=== PATIENT | female | born 1965 | race Caucasian/White ===

== ENCOUNTER 2017-12-23 13:57 | Inpatient (IN) | payer MEDICARE, BC ==
[2017-12-23 14:34] LABS: ADD MAN DIFF? NO
[2017-12-23 15:05] LABS: ALANINE AMINOTRANSFERASE 17 IU/L (13-69); ALBUMIN 4.7 g/dl (3.3-4.9); ALBUMIN/GLOBULIN RATIO 1.23; ALKALINE PHOSPHATASE 88 IU/L (42-121); ANION GAP 19 (8-16); ASPARTATE AMINO TRANSFERASE 35 IU/L (15-46); BILIRUBIN,INDIRECT 0.2 mg/dl (0-1.1); BILIRUBIN,TOTAL 0.2 mg/dl (0.2-1.3); BLOOD UREA NITROGEN 18 mg/dl (7-20); CALCIUM 9.9 mg/dl (8.4-10.2); CARBON DIOXIDE 20 mmol/L (21-31); CHLORIDE 106 mmol/L (97-110); CREATININE 2.39 mg/dl (0.44-1.00); GLUCOSE 99 mg/dl (70-220); POTASSIUM 4.2 mmol/L (3.5-5.1); SODIUM 141 mmol/L (135-144); TOTAL PROTEIN 8.5 g/dl (6.1-8.1)
[2017-12-23 15:15] LABS: WHITE BLOOD COUNT 10.4 10^3/ul (4.8-10.8)
[2017-12-23 15:15] LABS: BASOPHIL # 0.1 10^3/ul (0.0-0.1); BASOPHILS % 0.5 % (0.0-2.0); EOSINOPHILS # 0.1 10^3/ul (0.0-0.5); EOSINOPHILS % 1.3 % (0.0-7.0); HEMATOCRIT 44.9 % (37.0-47.0); HEMOGLOBIN 14.8 g/dl (12.0-16.0); LYMPHOCYTES # 1.2 10^3/ul (0.8-2.9); LYMPHOCYTES % 11.2 % (15.0-51.0); MEAN CORPUSCULAR HEMOGLOBIN 29.7 pg (29.0-33.0); MEAN PLATELET VOLUME 9.5 fl (7.4-10.4); MONOCYTE # 0.5 10^3/ul (0.3-0.9); MONOCYTES % 4.7 % (0.0-11.0); NEUTROPHIL # 8.5 10^3/ul (1.6-7.5); PLATELET COUNT 247 10^3/UL (140-415); RED BLOOD COUNT 4.99 10^6/ul (4.20-5.40); RED CELL DISTRIBUTION WIDTH 13.4 % (11.5-14.5)
[2017-12-23 15:16] LABS: ACETAMINOPHEN < 10.0 ug/ml (10.0-30.0); ETHANOL < 10.0 mg/dl; SALICYLATE < 1.0 mg/dl (5.0-30.0)
[2017-12-23 15:24] LABS: AMPHETAMINE/METHAMPHETAMINE Negative (NEGATIVE); BARBITURATES Negative (NEGATIVE); BENZODIAZEPINES Positive (NEGATIVE); CANNABINOIDS Negative (NEGATIVE); COCAINE Negative (NEGATIVE); OPIATES Negative (NEGATIVE)
[2017-12-24 13:19] LABS: CREATININE 3.68 mg/dl (0.44-1.00)
[2017-12-24] MEDS: SOD CHLORIDE 0.9% 1,000 ML IV ×2 (13:45→18:55)
[2017-12-24] MEDS ORDERED: ONDANSETRON 4 MG INJ IV ×2 (14:00→16:30)
[2017-12-24] MEDS ORDERED: ACETAMINOPHEN 325 MG TAB PO (14:00)
[2017-12-24] MEDS ORDERED: BISACODYL 10 MG SUPP PR (16:30)
[2017-12-24] MEDS ORDERED: DOCUSATE SODIUM 100 MG CAP PO (16:30)
[2017-12-24] MEDS ORDERED: HYDROCODONE/APAP (5/325) TAB PO (16:30)
[2017-12-24] MEDS ORDERED: MAGNESIUM HYDROXIDE 30ML CUP PO (16:30)
[2017-12-24] MEDS ORDERED: NACL 0.9% 3 ML SYG IV (16:30)
[2017-12-24] MEDS ORDERED: ACETAMINOPHEN 650 MG SUPP PR (16:30)
[2017-12-25] MEDS: SOD CHLORIDE 0.9% 1,000 ML IV ×2 (05:26→09:01)
[2017-12-25 06:32] LABS: ADD MAN DIFF? NO
[2017-12-25] MEDS: PANTOPRAZOLE 40 MG INJ IV (06:34)
[2017-12-25 06:38] LABS: BASOPHILS % 0.5 % (0.0-2.0); EOSINOPHILS # 0.2 10^3/ul (0.0-0.5); EOSINOPHILS % 2.8 % (0.0-7.0); HEMATOCRIT 33.5 % (37.0-47.0); HEMOGLOBIN 11.3 g/dl (12.0-16.0); LYMPHOCYTES # 1.5 10^3/ul (0.8-2.9); LYMPHOCYTES % 23.5 % (15.0-51.0); MEAN CORPUSCULAR HEMOGLOBIN 29.4 pg (29.0-33.0); MEAN CORPUSCULAR HGB CONC 33.7 g/dl (32.0-37.0); MEAN PLATELET VOLUME 9.8 fl (7.4-10.4); MONOCYTE # 0.5 10^3/ul (0.3-0.9); MONOCYTES % 7.2 % (0.0-11.0); NEUTROPHIL # 4.2 10^3/ul (1.6-7.5); NEUTROPHILS % 65.7 % (39.0-77.0); PLATELET COUNT 197 10^3/UL (140-415); RED BLOOD COUNT 3.85 10^6/ul (4.20-5.40); RED CELL DISTRIBUTION WIDTH 13.5 % (11.5-14.5)
[2017-12-25 06:38] LABS: WHITE BLOOD COUNT 6.4 10^3/ul (4.8-10.8)
[2017-12-25 07:05] LABS: CREATINE KINASE 60 IU/L (23-200)
[2017-12-25 07:09] LABS: ALANINE AMINOTRANSFERASE 22 IU/L (13-69); ALBUMIN 3.7 g/dl (3.3-4.9); ALBUMIN/GLOBULIN RATIO 1.27; ALKALINE PHOSPHATASE 61 IU/L (42-121); ANION GAP 12 (8-16); ASPARTATE AMINO TRANSFERASE 24 IU/L (15-46); BILIRUBIN,INDIRECT 0.3 mg/dl (0-1.1); BILIRUBIN,TOTAL 0.3 mg/dl (0.2-1.3); BLOOD UREA NITROGEN 28 mg/dl (7-20); CARBON DIOXIDE 19 mmol/L (21-31); CHLORIDE 115 mmol/L (97-110); CHOL/HDL RATIO 7.1 RATIO; CHOLESTEROL 213 mg/dl (100-200); CREATININE 2.45 mg/dl (0.44-1.00); GLUCOSE 103 mg/dl (70-220); HDL CHOLESTEROL 30 mg/dl (37-92); LDL CHOLESTEROL,CALCULATED 138 mg/dl; PHOSPHORUS 5.5 mg/dl (2.5-4.9); POTASSIUM 4.2 mmol/L (3.5-5.1); SODIUM 142 mmol/L (135-144); TOTAL PROTEIN 6.6 g/dl (6.1-8.1); TRIGLYCERIDES 224 mg/dl (0-149)
[2017-12-25 07:20] LABS: FREE THYROXINE INDEX (Calc) 1.71 ug/ml (0.65-3.89); T3 UPTAKE 32.8 % (23.5-40.5); T4 (THYROXINE) 5.2 ug/dl (5.5-11.0)
[2017-12-25 08:04] LABS: HEMOGLOBIN A1C 5.9 % (0-5.9)
[2017-12-25] MEDS: PAROXETINE 20 MG TAB PO (09:00)
[2017-12-25] MEDS: FERROUS SULFATE (EC) 325 MG TAB PO (09:00)
[2017-12-25] MEDS: SOD CHLORIDE 0.45% 1,000 ML IV (11:52)
[2017-12-25] MEDS: FISH OIL 1,000 MG CAP PO (20:15)
[2017-12-25] MEDS: ATORVASTATIN 40 MG TAB PO (20:16)
[2017-12-26] MEDS ORDERED: SALINE NASAL
[2017-12-26] MEDS ORDERED: ALOE NASAL
[2017-12-26] MEDS: TRIAMCINOLONE ACET 0.025% 15 GM CR TOP
[2017-12-26 01:51] LABS: SODIUM,URINE RANDOM 31 mmol/L (30-90)
[2017-12-26 01:55] LABS: CREATININE,URINE RANDOM 28.41 mg/dl (20-320); PROTEIN/CREAT RATIO 0.52 RATIO
[2017-12-26] MEDS: SOD CHLORIDE 0.45% 1,000 ML IV (02:10)
[2017-12-26] MEDS: PANTOPRAZOLE 40 MG INJ IV (06:37)
[2017-12-26] MEDS: FISH OIL 1,000 MG CAP PO (08:37)
[2017-12-26] MEDS: FERROUS SULFATE (EC) 325 MG TAB PO (08:37)
[2017-12-26] MEDS: ACETAMINOPHEN 325 MG TAB PO (08:37)
[2017-12-26] MEDS: PAROXETINE 20 MG TAB PO (08:38)
[2017-12-26 10:21] LABS: ANION GAP 13 (8-16); BLOOD UREA NITROGEN 21 mg/dl (7-20); CALCIUM 9.5 mg/dl (8.4-10.2); CARBON DIOXIDE 18 mmol/L (21-31); CHLORIDE 114 mmol/L (97-110); CREATININE 1.69 mg/dl (0.44-1.00); GLUCOSE 143 mg/dl (70-220); SODIUM 141 mmol/L (135-144)
[2017-12-26] MEDS: TRIAMCINOLONE ACET 0.5% 15 GM CR TOP (12:28)
== END 2017-12-26 14:45 | disposition short-term general hospital (02) | DRG 917 ==
LOC: E/R 13:57 → 2NE 12-24 13:39
DX: T42.4X1A Poisoning by benzodiazepines, accidental (unintentional), initial encounter (principal); N17.0 Acute kidney failure with tubular necrosis; R45.851 Suicidal ideations; F32.9 Major depressive disorder, single episode, unspecified; R52 Pain, unspecified; Z90.49 Acquired absence of other specified parts of digestive tract; Z87.19 Personal history of other diseases of the digestive system; Z81.8 Family history of other mental and behavioral disorders
CPT/HCPCS: 36415; 76775; 80048; 80053; 80061; 80307; 81003; 81025; 82550; 82565; 82570; 83036; 83735; 84100; 84300; 84436; 84443; 84479; 84560; 85025; 89190; 99291-25